=== PATIENT | female | born 1995 | race Caucasian/White ===

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

== ENCOUNTER 2019-06-09 16:14 | Emergency (ER) | payer OTHER ==
[~2019-06-09] VITALS: Ht 170.1 cm; Wt 56.7 kg
[2019-06-09 16:38] LABS: BASO % 0.5 % (0.0-1.0); EOS # 0.2 10*3/uL (0.0-0.4); EOS % 2.2 % (1.0-4.0); HEMATOCRIT 39.4 % (37.0-47.0); HEMOGLOBIN 13.3 g/dl (12.0-16.0); LYMPH # 1.8 10*3/uL (1.3-4.4); LYMPH % 23.8 % (27.0-41.0); MEAN CELL VOLUME 91.6 fl (81.0-99.0); MEAN CORPUSCULAR HGB 30.9 pg (27.0-31.0); MEAN CORPUSCULAR HGB CONC 33.8 g/dl (33.0-37.0); MONO # 0.4 10*3/uL (0.1-1.0); NEUT # 5.2 10*3/uL (2.3-7.9); NEUT % 68.4 % (47.0-73.0); PLATELET COUNT AUTOMATED 185 10*3/uL (130-400); RED CELL DISTRI WIDTH 12.7 % (0-14.5); WHITE BLOOD COUNT 7.6 10*3/uL (4.8-10.8)
[2019-06-09 16:38] LABS: BILIRUBIN NEGATIVE (NEGATIVE); BLOOD 3+ (NEGATIVE); CLARITY CLOUDY (CLEAR); COLOR YELLOW (YELLOW); GLUCOSE NEGATIVE (NEGATIVE); KETONE NEGATIVE (NEGATIVE); LEUKO ESTERASE NEGATIVE (NEGATIVE); NITRITE NEGATIVE (NEGATIVE); UROBILINOGEN 0.2 E.U./dl (0.2-1.0)
[2019-06-09 16:44] LABS: BACTERIA 1+; RBC TNTC rbc/hpf (0-2); WBC 0-2 wbc/hpf (0-5)
[2019-06-09 16:53] LABS: ALBUMIN 4.2 gm/dl (3.1-4.5); ALKALINE PHOSPHATASE 57 U/L (45-117); BUN 3 mg/dl (7-24); CHLORIDE 109 mmol/L (98-107); CREATININE 0.75 mg/dL (0.55-1.02); POTASSIUM 3.9 mmol/L (3.5-5.1); SGOT/AST 17 IU/L (3-35); SGPT/ALT 14 U/L (12-78); SODIUM 140 mmol/L (136-145); TOTAL PROTEIN 8.4 gm/dL (6.4-8.2)
== END 2019-06-09 17:45 | disposition home or self-care (01) ==
LOC: ED 16:14
PROVIDERS: Nurse Practitioner Family
DX: N93.9 Abnormal uterine and vaginal bleeding, unspecified (principal); Z91.048 Other nonmedicinal substance allergy status

== ENCOUNTER 2020-05-21 12:39 | Emergency (ER) | payer OTHER | END 2020-05-21 14:03 | disposition short-term general hospital (02) | LOC: ED 12:39 | DX: O75.9 Complication of labor and delivery, unspecified (principal); Z3A.39 39 weeks gestation of pregnancy ==

== ENCOUNTER 2022-03-14 10:41 | Emergency (ER) | payer OTHER ==
[~2022-03-14] VITALS: Ht 170.1 cm; Wt 56.7 kg
[2022-03-14] MEDS ORDERED: SEPTDS PO (12:32)
== END 2022-03-14 12:58 | disposition home or self-care (01) ==
LOC: ED 10:41
DX: M79.671 Pain in right foot (principal)

== ENCOUNTER 2022-04-26 06:32 | Emergency (ER) | payer OTHER ==
[~2022-04-26] VITALS: Ht 170.1 cm; Wt 61.2 kg
[~2022-04-26 06:32] MED LIST: SEPTDS PO
[2022-04-26 08:01] LABS: BILIRUBIN Negative (Negative); BLOOD Negative (Negative); CLARITY Clear (Clear); COLOR Yellow (Yellow); GLUCOSE Negative (Negative); KETONE Negative (Negative); LEUKO ESTERASE Negative (Negative); NITRITE Negative (Negative); SPECIFIC GRAVITY <= 1.005 (1.001-1.030); UROBILINOGEN 0.2 E.U./dl (0.0-1.0)
[2022-04-26 08:27] LABS: RBC 0-2 rbc/hpf (0-2); WBC 0-2 wbc/hpf (0-5)
== END 2022-04-26 09:15 | disposition home or self-care (01) ==
LOC: ED 06:32
PROVIDERS: Emergency Medicine
DX: J06.9 Acute upper respiratory infection, unspecified (principal); Z20.822 Contact with and (suspected) exposure to COVID-19; F17.200 Nicotine dependence, unspecified, uncomplicated

== ENCOUNTER 2022-11-20 16:44 | Emergency (ER) | payer OTHER ==
[~2022-11-20] VITALS: Ht 170.1 cm; Wt 56.7 kg
[2022-11-20] MEDS ORDERED: ZITHROMAX250 MG PO (17:11)
== END 2022-11-20 19:24 | disposition home or self-care (01) ==
LOC: ED 16:44
DX: J32.9 Chronic sinusitis, unspecified (principal); Z88.8 Allergy status to other drugs, medicaments and biological substances